=== PATIENT | male | born 1930 | race Caucasian/White ===

== ENCOUNTER 2018-01-26 14:21 | Emergency (ER) | payer MEDICARE, OTHER ==
[~2018-01-26] VITALS: Ht 182.9 cm; Wt 93.0 kg
[~2018-01-26 14:21] MED LIST: ACET325S8 PO; ASPI81 PO; CARB25TA PO; DONE5TAB14 PO; FOLI1 PO; HYDR-3533 PO; LEVO75TA3 PO; METH2.5 PO; PLAV75TA PO; PROS5TAB2 PO; TAB-TAB PO; VITA-13 PO; VITA10004 PO; ZOCO40TA PO
[2018-01-26 14:36] VITALS: BP 152/73; PULSE 97; RESP 16; TEMP 99.5; O2SAT 93
[2018-01-26 14:45] VITALS: O2SAT 93
[2018-01-26] MEDS ORDERED: SIMV20TA PO (14:45)
[2018-01-26] MEDS ORDERED: SODIUM CHLORIDE 0.9% FLUSH 10 ML FLUSH IVF PRN (14:45)
[2018-01-26] MEDS ORDERED: METH2.5T PO (14:45)
[2018-01-26] MEDS ORDERED: LEVO25TA4 PO (14:45)
[2018-01-26] MEDS ORDERED: FINA5TAB2 (14:45)
[2018-01-26] MEDS ORDERED: RESP: ALBUTEROL 2.5 MG/IPRATROPIUM 0.5 MG NEB (SCH) INH ONE (14:45)
[2018-01-26] MEDS ORDERED: FLUT1INH7 INH (14:45)
[2018-01-26] MEDS ORDERED: MONT10TA4 PO (14:45)
[2018-01-26] MEDS ORDERED: ALBUAER3 INH ×2 (14:45→16:41)
[2018-01-26] MEDS ORDERED: DONE10TA7 PO (14:45)
[2018-01-26] MEDS ORDERED: CARB10TA2 (14:45)
[2018-01-26 15:03] VITALS: BP 113/61; PULSE 73; RESP 20; O2SAT 93
--- NOTE | 2018-01-26 15:04 | PD ---
HPI Chief Complaint: Respiratory Symptoms Time Seen by Provider: 14:27 Travel History International Travel<30 days: No Contact w/Intl Traveler<30days: No Traveled to known affect area: No History of Present Illness HPI The patient is a 87-year-old male who presents to the emergency department for shortness of breath. The patient fell getting into the car on Monday afternoon. The patient fell backwards landing on his buttocks, but striking his mid thoracic back area on an edge. The patient has had some pain across the mid thoracic area that radiates to the shoulders bilaterally since Monday. The patient saw his primary physician, Dr. Larkin, on Monday who stated the patient did not need x-rays. However, the patient has had increasing shortness of breath, wheezing, and difficulty breathing since Monday. He also has pain when he goes from a lying to sitting position as well as certain types of movement, however, those improve at rest. He does note a bruise to the lower back pelvic region, but denies any pain there. He is able to ambulate and bear weight. He denied any head injury during the fall. He denies any headache or neck pain. He does take Plavix. He does note a cough without any fever. 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) Psychiatric: No Immunizations Current: Yes Past Surgical History Neurologic Surgery: Yes (PARKINSON) Other Surgery: Yes (PVD ANGIOPLASTY) Social History Alcohol Use: Yes (2 DLY) Tobacco Use: No (FORMER) Substance Use: No Allergies-Medications (Allergen,Severity, Reaction): Coded Allergies: No Known Allergies (Verified Adverse Reaction, Unknown, 01/26/18) Reported Meds & Prescriptions Reported Meds & Active Scripts Active Reported Proair Hfa 8.5 GM Inh (Albuterol Sulfate) 90 Mcg/Act Aer 2 Puff INH Q4-6H PRN 108 mcg/actuation Montelukast (Montelukast Sodium) 10 Mg Tab 10 Mg PO HS Simvastatin 20 Mg Tab 20 Mg PO DAILY Levothyroxine (Levothyroxine Sodium) 25 Mcg Tab 25 Mcg PO DAILY Breo Ellipta Inh (Fluticasone/Vilanterol) 200-25 Mcg/Act Inh 1 Puff INH DAILY Use daily at the same time. Methotrexate 2.5 Mg Tab 7.5 Mg PO Q7D Finasteride 5 Mg Tab 5 Mg DAILY Do not crush. Carbidopa-Levodopa 10-100 Mg Tab 1 Tab Q8HR Donepezil 10 Mg Tab 10 Mg PO HS Review of Systems Except as stated in HPI: all other systems reviewed are Neg General / Constitutional: No: Fever HENT: No: Lightheadedness Cardiovascular: No: Chest Pain or Discomfort Respiratory: Positive: Cough, Shortness of Breath Gastrointestinal: No: Nausea, Vomiting, Abdominal Pain Musculoskeletal: Positive: Pain Neurologic: No: Dizziness, Change in Mentation, Paresthesia, Sensory Disturbance Physical Exam Narrative GENERAL: Awake, alert, pleasant 87-year-old male who appears his stated age and is in no acute respiratory distress. SKIN: Focused skin assessment warm/dry. HEAD: Atraumatic. Normocephalic. EYES: Pupils equal and round. No scleral icterus. No injection or drainage. ENT: No nasal bleeding or discharge. Mucous membranes pink and moist. NECK: Trachea midline. No JVD. No tenderness of the cervical vertebrae. CARDIOVASCULAR: Regular rate and rhythm. No murmur appreciated. Heart rate in the 90s. RESPIRATORY: No accessory muscle use. Rhonchi and rales noted in the left base. GASTROINTESTINAL: Abdomen soft, non-tender, nondistended. No rebound tenderness. Back: No thoracic lumbar vertebral tenderness. Area of ecchymosis of the right sacroiliac but no tenderness. MUSCULOSKELETAL: No obvious deformities. No clubbing. No cyanosis. No edema. Full range of motion of the upper extremities and lower extremities bilaterally. NEUROLOGICAL: Awake and alert. No obvious cranial nerve deficits. Motor grossly within normal limits. Normal speech. Nonfocal. Oriented 3. Follows simple commands. PSYCHIATRIC: Appropriate mood and affect; insight and judgment normal. Data Data Last Documented VS Vital Signs Date Time Temp Pulse Resp B/P (MAP) Pulse Ox O2 Delivery O2 Flow Rate FiO2 01/26/18 15:03 73 20 113/61 (78) 93 Nasal Cannula 01/26/18 14:45 2.00 01/26/18 14:36 99.5 Orders Orders Complete Blood Count With Diff (01/26/18 14:43) Comprehensive Metabolic Panel (01/26/18 14:43) B-Type Natriuretic Peptide (01/26/18 14:43) Magnesium (Mg) (01/26/18 14:43) Ckmb (Isoenzyme) Profile (01/26/18 14:43) Troponin I (01/26/18 14:43) Iv Access Insert/Monitor (01/26/18 14:43) Electrocardiogram (01/26/18 14:43) Ecg Monitoring (01/26/18 14:43) Oximetry (01/26/18 14:43) Oxygen Administration (01/26/18 14:43) Chest, Single Ap (01/26/18 14:43) Sodium Chloride 0.9% Flush (Ns Flush) (01/26/18 14:45) Albuterol-Ipratropium Neb (Duoneb Neb) (01/26/18 14:45) Ct Thorax/ Chest W Iv Contrast (01/26/18 ) Iohexol 350 Inj (Omnipaque 350 Inj) (01/26/18 15:55) Ed Discharge Order (01/26/18 16:37) Labs Laboratory Tests Test 01/26/18 14:52 White Blood Count 10.1 TH/MM3 Red Blood Count 4.37 MIL/MM3 Hemoglobin 13.3 GM/DL Hematocrit 39.2 % Mean Corpuscular Volume 89.7 FL Mean Corpuscular Hemoglobin 30.3 PG Mean Corpuscular Hemoglobin Concent 33.8 % Red Cell Distribution Width 14.9 % Platelet Count 204 TH/MM3 Mean Platelet Volume 9.0 FL Neutrophils (%) (Auto) 85.1 % Lymphocytes (%) (Auto) 8.5 % Monocytes (%) (Auto) 4.6 % Eosinophils (%) (Auto) 1.4 % Basophils (%) (Auto) 0.4 % Neutrophils # (Auto) 8.6 TH/MM3 Lymphocytes # (Auto) 0.9 TH/MM3 Monocytes # (Auto) 0.5 TH/MM3 Eosinophils # (Auto) 0.1 TH/MM3 Basophils # (Auto) 0.0 TH/MM3 CBC Comment DIFF FINAL Differential Comment Blood Urea Nitrogen 18 MG/DL Creatinine 1.00 MG/DL Random Glucose 201 MG/DL Total Protein 7.3 GM/DL Albumin 3.2 GM/DL Calcium Level 8.0 MG/DL Magnesium Level 2.0 MG/DL Alkaline Phosphatase 80 U/L Aspartate Amino Transf (AST/SGOT) 13 U/L Alanine Aminotransferase (ALT/SGPT) 28 U/L Total Bilirubin 0.7 MG/DL Sodium Level 138 MEQ/L Potassium Level 3.9 MEQ/L Chloride Level 102 MEQ/L Carbon Dioxide Level 27.3 MEQ/L Anion Gap 9 MEQ/L Estimat Glomerular Filtration Rate 71 ML/MIN Total Creatine Kinase 68 U/L Troponin I LESS THAN 0.02 NG/ML B-Type Natriuretic Peptide 83 PG/ML MDM Medical Decision Making Medical Screen Exam Complete: Yes Emergency Medical Condition: Yes Medical Record Reviewed: Yes Interpretation(s) EKG reveals normal sinus rhythm with a rate of 92. Right bundle branch block. Laboratory Tests Test 01/26/18 14:52 White Blood Count 10.1 TH/MM3 Red Blood Count 4.37 MIL/MM3 Hemoglobin 13.3 GM/DL Hematocrit 39.2 % Mean Corpuscular Volume 89.7 FL Mean Corpuscular Hemoglobin 30.3 PG Mean Corpuscular Hemoglobin Concent 33.8 % Red Cell Distribution Width 14.9 % Platelet Count 204 TH/MM3 Mean Platelet Volume 9.0 FL Neutrophils (%) (Auto) 85.1 % Lymphocytes (%) (Auto) 8.5 % Monocytes (%) (Auto) 4.6 % Eosinophils (%) (Auto) 1.4 % Basophils (%) (Auto) 0.4 % Neutrophils # (Auto) 8.6 TH/MM3 Lymphocytes # (Auto) 0.9 TH/MM3 Monocytes # (Auto) 0.5 TH/MM3 Eosinophils # (Auto) 0.1 TH/MM3 Basophils # (Auto) 0.0 TH/MM3 CBC Comment DIFF FINAL Differential Comment Blood Urea Nitrogen 18 MG/DL Creatinine 1.00 MG/DL Random Glucose 201 MG/DL Total Protein 7.3 GM/DL Albumin 3.2 GM/DL Calcium Level 8.0 MG/DL Magnesium Level 2.0 MG/DL Alkaline Phosphatase 80 U/L Aspartate Amino Transf (AST/SGOT) 13 U/L Alanine Aminotransferase (ALT/SGPT) 28 U/L Total Bilirubin 0.7 MG/DL Sodium Level 138 MEQ/L Potassium Level 3.9 MEQ/L Chloride Level 102 MEQ/L Carbon Dioxide Level 27.3 MEQ/L Anion Gap 9 MEQ/L Estimat Glomerular Filtration Rate 71 ML/MIN Total Creatine Kinase 68 U/L Troponin I LESS THAN 0.02 NG/ML B-Type Natriuretic Peptide 83 PG/ML Last Impressions Chest X-Ray 01/26/18 1443 Signed Impressions: Service Date/Time: Friday, January 26, 2018 14:58 - CONCLUSION: No acute disease. Joshua Faust Jr., MD Chest CT 01/26/18 0000 Signed Impressions: Service Date/Time: Friday, January 26, 2018 15:44 - CONCLUSION: 1. 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 2. No evidence of pneumothorax. Joshua Sharma MD Differential Diagnosis Differential diagnosis includes mechanical fall, rib fracture, pneumothorax, hemothorax, pleural effusion, bronchitis, pneumonia, atelectasis, contusion, fracture. Narrative Course IV was established, labs are drawn and sent, and the patient was placed on cardiac telemetry monitoring and continuous pulse oximetry monitoring. EKG was ordered and interpreted. Chest x-ray was obtained. The patient was administered a DuoNeb. Chest x-ray reveals what appears to be left lower rib fractures but no evidence for pneumothorax. 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 Most likely the patient's effusion is a hemothorax note that the patient is 5 days out and has rib fractures over the affected area. The patient 's oxygen saturation was in the 93-96% range. He did not want pain medications in the emergency department. I had a discussion with the patient regarding admission to the trauma service versus outpatient follow-up. The patient would prefer outpatient follow-up. I had a discussion with the trauma surgeon, Dr. Sales, who agrees the patient can follow-up with the trauma clinic but recommends incentive spirometry and pain control. The states they have been spending incentive spirometry at home. I will write for albuterol inhaler , Zithromax, and [facility]. He is advised to return if symptoms worsen or progress. Diagnosis Primary Impression: Multiple rib fractures Qualified Codes: S22.42XA - Multiple fractures of ribs, left side, initial encounter for closed fracture Additional Impression: Hemothorax on left Referrals: [facility] as needed Patient Instructions: General Instructions Additional Instructions: Medications as directed. Follow-up with your primary physician. Follow-up with the trauma clinic. Incentive spirometry as directed. Albuterol inhaler every 4 hours while awake. Return if symptoms worsen or progress. Med/Other Pt SpecificInfo: Prescription(s) given Scripts Azithromycin (Zithromax Z-Angel) 250 Mg Dspk 250 MG PO DIRECTED for Infection, #1 DSPK 0 Refills 500 MG (2 tabs) day 1, then 1 tab days 2-5. Prov: Reza Zamorano MD 01/26/18 Hydrocodone-Acetaminophen ([facility]) 5 Mg-325 Mg Tab 1 TAB PO Q6H Y for PAIN, #15 TAB 0 Refills Prov: Reza Zamorano MD 01/26/18 Albuterol 8.5 GM Inh (Proair Hfa 8.5 GM Inh) 90 Mcg/Act Aer 2 PUFF INH Q4-6H Y for SHORTNESS OF BREATH, #1 INHALER 0 Refills 108 mcg/actuation Prov: Reza Zamorano MD 01/26/18 Disposition: 01 DISCHARGE HOME Condition: Stable Reza Zamorano MD Jan 26, 2018 15:04
[2018-01-26 15:17] LABS: AUTOMATED NEUTROPHIL # 8.6 TH/MM3 (1.8-7.7); BASOPHIL % 0.4 % (0.0-2.0); EOSINOPHIL # 0.1 TH/MM3 (0-0.4); EOSINOPHIL % 1.4 % (0.0-4.0); HEMATOCRIT 39.2 % (39.0-51.0); HEMOGLOBIN 13.3 GM/DL (13.0-17.0); LYMPH % 8.5 % (9.0-44.0); LYMPHOCYTE # 0.9 TH/MM3 (1.0-4.8); MEAN CELL VOLUME 89.7 FL (80.0-100.0); MEAN CORPUSCULAR HEMOGLOBIN 30.3 PG (27.0-34.0); MEAN CORPUSCULAR HGB CONC 33.8 % (32.0-36.0); MONO % 4.6 % (0.0-8.0); MONOCYTE # 0.5 TH/MM3 (0-0.9); NEUT % 85.1 % (16.0-70.0); PLATELET COUNT 204 TH/MM3 (150-450); RED BLOOD COUNT 4.37 MIL/MM3 (4.50-5.90); RED CELL DISTRIBUTION WIDTH 14.9 % (11.6-17.2); WHITE BLOOD COUNT 10.1 TH/MM3 (4.0-11.0)
--- NOTE | 2018-01-26 15:19 | RADRPT ---
EXAM DATE/TIME: 01/26/2018 14:58 [facility] COMPARISON: CHEST SINGLE AP, September 11, 2015, 11:35. INDICATIONS : Short of breath after fall 6 days ago. MEDICAL HISTORY : Hypercholesterolemia. Dementia. Parkinson's diabetic. former smoker. SURGICAL HISTORY : Total knee replacement, right. Total knee replacement, left. PVD angioplasty. ENCOUNTER: Initial ACUITY: 4 - 6 days PAIN SCORE: 6/10 LOCATION: chest FINDINGS: A single view of the chest demonstrates the lungs to be symmetrically aerated without evidence of mas s, infiltrate or effusion. No pneumothorax. The cardiomediastinal contours are unremarkable. Osseou s structures are intact. CONCLUSION: No acute disease. Joshua Faust Jr., MD on January 26, 2018 at 15:16 Board Certified Radiologist. This report was verified electronically.
[2018-01-26 15:29] LABS: CHLORIDE 102 MEQ/L (98-107); SODIUM (NA) 138 MEQ/L (136-145)
[2018-01-26 15:32] LABS: ALBUMIN 3.2 GM/DL (3.4-5.0); BICARBONATE 27.3 MEQ/L (21.0-32.0); GLUCOSE,RANDOM 201 MG/DL (74-106)
[2018-01-26 15:33] LABS: BLOOD UREA NITROGEN 18 MG/DL (7-18)
[2018-01-26 15:36] LABS: ALT (GPT) 28 U/L (12-78); AST (GOT) 13 U/L (15-37); GLOMERULAR FILTRATION RATE 71 ML/MIN (>89)
[2018-01-26 15:37] LABS: TOTAL BILIRUBIN ADULT 0.7 MG/DL (0.2-1.0); TOTAL PROTEIN 7.3 GM/DL (6.4-8.2)
[2018-01-26 15:38] LABS: ALKALINE PHOSPHATASE 80 U/L (45-117)
[2018-01-26 15:41] LABS: TROPONIN I LESS THAN 0.02 NG/ML (0.02-0.05)
[2018-01-26] MEDS ORDERED: IOHEXOL 350 MG/ML 10 ML VIAL (for RAD DIAG) IVCONTRAST ONE (15:55)
--- NOTE | 2018-01-26 16:26 | RADRPT ---
EXAM DATE/TIME: 01/26/2018 15:44 [facility] COMPARISON: CHEST SINGLE AP, January 26, 2018, 14:58. INDICATIONS : Trauma. Fall. Short of breath. Left chest and shoulder pain. IV CONTRAST: 65 cc Omnipaque 350 (iohexol) IV RADIATION DOSE: 17.59 CTDIvol (mGy) MEDICAL HISTORY : Parkinson's. Diabetes mellitus type 2. Cardiovascular diseaseDementia. SURGICAL HISTORY : None. ENCOUNTER: Initial ACUITY: 4 - 6 days PAIN SCALE: 7/10 LOCATION: Left chest TECHNIQUE: Volumetric scanning of the chest was performed. Using automated exposure control and adjustment of t he mA and/or kV according to patient size, radiation dose was kept as low as reasonably achievable to obtain optimal diagnostic quality images. DICOM format image data is available electronically for review and comparison. Follow-up recommendations for detected pulmonary nodules are based at a minimum on nodule size and pa tient risk factors according to Fleischner Society Guidelines. FINDINGS: LUNGS: There is focal subsegmental consolidation adjacent to the large left pleural effusion. The right maria luisa g is clear. No evidence of pneumothorax. PLEURA: Large left pleural fluid or blood collection measuring 3.[address] density of -10 Houns[place] uni ts suggesting the possibility of chylous effusion. MEDIASTINUM: The heart and great vessels demonstrate no acute abnormality. There is no mediastinal or hilar lymph adenopathy. AXILLAE: Within normal limits. No lymphadenopathy. SKELETAL: There are minimally displaced fractures of the posterior-lateral left 7th, 8th, and 9th ribs the. Th e scapula appears intact.. MISCELLANEOUS: The visualized upper abdominal organs demonstrate no acute abnormality. CONCLUSION: 1. 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 2. No evidence of pneumothorax. Joshua Sharma MD on January 26, 2018 at 16:02 Board Certified Radiologist. This report was verified electronically.
[2018-01-26] MEDS ORDERED: ZITHTAB PO (16:41)
[2018-01-26] MEDS ORDERED: NORC5TAB PO (16:41)
[2018-01-26 17:32] VITALS: BP 115/58
--- NOTE | 2018-01-27 16:58 | EKG ---
Date Performed: 01/26/2018 Time Performed: 14:44:40 PTAGE: 87 years EKG: Sinus rhythm MARKED RIGHT AXIS DEVIATION RIGHT BUNDLE BRANCH BLOCK Since the previous tracing, no significant sachi nge noted ABNORMAL ECG PREVIOUS TRACING : 10/20/2013 01.12 DOCTOR: Carlos Gonzalez Interpretating Date/Time 01/27/2018 16:57:54
== END 2018-01-26 17:33 | disposition home or self-care (01) ==
LOC: PHED 14:21
DX: S22.42XA Multiple fractures of ribs, left side, initial encounter for closed fracture (principal); S27.1XXA Traumatic hemothorax, initial encounter; I45.10 Unspecified right bundle-branch block; R94.31 Abnormal electrocardiogram [ECG] [EKG]; W18.39XA Other fall on same level, initial encounter
CPT/HCPCS: 71045; 71260; 80053; 82550; 83735; 83880; 84484; 85025; 93005; 99285; Q9967

== ENCOUNTER 2018-09-01 13:41 | Observation (INO) ==
[2018-09-01] MEDS ORDERED: Acetaminophen 325 MG Tablet PO ONE (14:01)
--- NOTE | 2018-09-01 14:32 | XR ---
EXAM DATE: 09/01/2018 2:28 PM EST AGE/SEX: 88 years / Male INDICATIONS: Fever, cough CLINICAL DATA: This is the patient's initial encounter. Patient reports that signs and symptoms have been present for 1 day and indicates a pain score of 0/10. MEDICAL/SURGICAL HISTORY: . Hypercholesterolemia. Dementia. Parkinson's diabetic. former smoker . . Total knee replacement, right. Total knee replacement, left. PVD angioplasty COMPARISON: [facility], CHEST SINGLE AP, 01/26/2018. . FINDINGS: No infiltrate, effusion or pneumothorax demonstrated. Very mild, chronic diffuse interstitial opaciti es of both lungs without significant change. Normal, stable heart size. Tortuous and atherosclerotic aorta again seen. CONCLUSION: 1. No evidence of acute cardiopulmonary disease. 2. Very mild chronic interstitial changes similar to before. 3. Tortuous and atherosclerotic aorta. Electronically signed by: Michael Bowser MD 09/01/2018 2:31 PM EST
[2018-09-01 14:35] LABS: Baso % (Auto) 0.3 % (0.0-2.0); Eos # (Auto) 0.1 th/mm3 (0.0-0.4); Eos % (Auto) 1.2 % (0.0-4.0); Hematocrit 38.8 % (39.0-51.0); Lymph # (Auto) 0.4 th/mm3 (1.0-4.8); Lymph % (Auto) 5.4 % (9.0-44.0); Mean Corpuscular HGB Conc 33.5 % (32.0-36.0); Mean Corpuscular Hemoglobin 30.8 pg (27.0-34.0); Mean Corpuscular Volume 91.8 fL (80.0-100.0); Mono # (Auto) 0.8 th/mm3 (0.0-0.9); Mono % (Auto) 10.5 % (0.0-8.0); Neut # (Auto) 6.5 th/mm3 (1.8-7.7); Neut % (Auto) 82.6 % (16.0-70.0); Platelet Count 163 th/mm3 (150-450); Red Blood Count 4.23 mil/mm3 (4.50-5.90); Red Cell Distribution Width 15.2 % (11.6-17.2); White Blood Count 7.8 th/mm3 (4.0-11.0)
[2018-09-01] MEDS: Sod Chloride 0.9% Inj 1,000 ML IV.SIG SCH ×2 (14:46→15:49)
[2018-09-01 14:50] LABS: Chloride 101 meq/L (98-107); Sodium 136 meq/L (136-145)
[2018-09-01 14:53] LABS: Calcium 8.5 mg/dL (8.5-10.1)
[2018-09-01 14:54] LABS: Albumin 3.2 g/dL (3.4-5.0); Anion Gap 6 meq/L (5-15); Blood Urea Nitrogen 14 mg/dL (7-18); Carbon Dioxide 28.8 meq/L (21.0-32.0); Glucose,Random 181 mg/dL (74-106); Magnesium 1.9 mg/dL (1.5-2.5)
[2018-09-01 14:57] LABS: Alanine Aminotransferase 16 U/L (12-78); Aspartate Aminotransferase 15 U/L (15-37); Glomerular Filtration Rate 72 mL/min (>89)
[2018-09-01 14:59] LABS: Total Protein 7.5 g/dL (6.4-8.2)
[2018-09-01 15:00] LABS: Alkaline Phosphatase 83 U/L (45-117)
[2018-09-01] MEDS ORDERED: Azithromycin Inj 500 MG in Sodium Chlor 0.9% Inj 250 ML IV.SIG ONE (15:01)
--- NOTE | 2018-09-01 15:12 | ED ---
HPI General Chief Complaint: Respiratory Symptoms Stated Complaint: congestion/sob/fever/cough Time Seen by Provider: 09/01/18 14:00 Source: patient and family Mode of arrival: ambulatory Limitations: no limitations History of Present Illness MD complaint: Reports fever Onset (ago): day(s) (3) Associated symptoms: Reports cough Relieving factors: nothing Exacerbating factors: nothing Treatments prior to arrival fever: Reports none Related Data Home Medications Medication Instructions Recorded Confirmed aspirin [Aspir-81] 81 mg PO DAILY 09/01/18 09/01/18 carbidopa-levodopa 1 tab PO TID 09/01/18 09/01/18 cholecalciferol (vitamin D3) 1,000 unit PO DAILY 09/01/18 09/01/18 [Vitamin D3] clopidogrel 75 mg PO DAILY 09/01/18 09/01/18 cyanocobalamin (vitamin B-12) 1 tab PO DAILY 09/01/18 09/01/18 [Vitamin B-12] donepezil 10 mg PO DAILY 09/01/18 09/01/18 finasteride 5 mg PO DAILY 09/01/18 09/01/18 fluticasone-vilanterol [Breo 1 inh INHALATION DAILY 09/01/18 09/01/18 Ellipta] folic acid 1 mg PO DAILY 09/01/18 09/01/18 levothyroxine 75 mcg PO DAILY 09/01/18 09/01/18 memantine 5 mg PO BID 09/01/18 09/01/18 methotrexate sodium 10 mg PO QWEEK 09/01/18 09/01/18 montelukast 10 mg PO QPM 09/01/18 09/01/18 ynfznjix-nol-RD-lycopen-lutein 1 tab PO DAILY 09/01/18 09/01/18 [Centrum Silver] simvastatin 20 mg PO QPM 09/01/18 09/01/18 Allergies Allergy/AdvReac Type Severity Reaction Status Date / Time No Known Allergies Allergy Verified 09/01/18 13:52 Review of Systems ROS: all other systems reviewed are negative PMFSH History History Provided By: Family Member Medical History Medical History Dementia (Chronic) Parkinson disease (Chronic) Social History Social History Substance History: No History of Abuse Second Hand Smoke Exposure: No Smoking Status: Former smoker How Often Do You Have a Drink Containing Alcohol: 4 or more times a week Exam Const General: cooperative, healthy appearing, comfortable, no acute distress and well developed Orientation: alert, awake and oriented x3 HENME Head: normal to inspection, normocephalic and atraumatic Eyes Alignment and Position: alignment normal and position abnormal Conjunctivae: conjunctivae normal Sclera: sclerae normal EOM: EOM intact bilaterally Neck Neck: normal visual inspection and full ROM Chest Chest: normal inspection of the chest Resp Effort & Inspection: normal respiratory effort and able to speak in complete sentences Auscultation: rhonchi left lower Cardio Rate: regular rate Rhythm: regular rhythm GI Inspection: normal to inspection Palpation: soft Back/Spine/Pelvis Cervical Spine: cervical ROM normal Thoracic/Lumbar Spine: thoraco-lumbar ROM normal Skin General: no rashes or lesions noted, turgor normal and dry skin Neuro General: alert, awake, oriented x3, moves all extremities and CN's II-XI intact bilaterally Extrem General: normal to inspection and full ROM Psych Appearance: grossly normal Mental Status: mental status grossly normal Speech and Movement: speech and movement normal Mood: congruent mood Affect: normal affect Attitude: cooperative Thought Process: normal Thought Content: normal Judgment: judgment good Course Consultations Consultation #1: Dr. Lundberg will place in OBS. He asked for a flu test which has been ordered. Time: 15:22 Initial Documented Vital Signs Temperature 101.4 F H 09/01/18 13:49 Pulse Rate 124 H 09/01/18 13:49 Respiratory Rate 16 09/01/18 13:49 Blood Pressure 122/64 09/01/18 13:49 Pulse Oximetry 93 L 09/01/18 13:49 Last Documented Vital Signs Temperature 101.4 F H 09/01/18 13:49 Pulse Rate 116 H 09/01/18 14:01 Respiratory Rate 16 09/01/18 13:49 Blood Pressure 122/64 09/01/18 13:49 Pulse Oximetry 92 L 09/01/18 14:01 Medical Decision Making [facility] Narrative Medical decision making narrative: This is a patient with a history of Parkinson 's disease as well as a reported history of dementia although he is able to give his own history. He comes in with a complaint of fever and productive cough for the last 3-4 days. He meets Sirs and sepsis criteria in that he is tachycardic and febrile and has a source for infection. His physical exam is compatible with a left lower lobe pneumonia. An IV has been started. 2 L of IV fluid have been ordered. Septic workup is in process. He is being empirically treated with IV Rocephin and IV Zithromax. I anticipate admission to the hospital for at least observation and IV antibiotics. Medical Screen Exam Complete: Yes Emergency Medical Condition: Yes Differential Diagnosis Differential Diagnosis: Differential diagnosis of fever includes but is not limited to viral illness, strep throat, otitis media, pneumonia, sepsis, UTI Lab Data Lab results reviewed: Yes I reviewed the patient's lab results. Result diagrams: 09/01/18 14:22 09/01/18 14:22 Lab Results 09/01/18 09/01/18 09/01/18 Range/Units 14:15 14:22 14:22 CBC w Diff Auto diff final WBC 7.8 (4.0-11.0) th/mm3 RBC 4.23 L (4.50-5.90) mil/mm3 Hgb 13.0 (13.0-17.0) gm/dL Hct 38.8 L (39.0-51.0) % MCV 91.8 (80.0-100.0) fL MCH 30.8 (27.0-34.0) pg MCHC 33.5 (32.0-36.0) % RDW 15.2 (11.6-17.2) % Plt Count 163 (150-450) th/mm3 MPV 9.0 (7.0-11.0) fL Neut % (Auto) 82.6 H (16.0-70.0) % Lymph % (Auto) 5.4 L (9.0-44.0) % Walker % (Auto) 10.5 H (0.0-8.0) % Eos % (Auto) 1.2 (0.0-4.0) % Baso % (Auto) 0.3 (0.0-2.0) % Neut # (Auto) 6.5 (1.8-7.7) th/mm3 Lymph # (Auto) 0.4 L (1.0-4.8) th/mm3 Walker # (Auto) 0.8 (0.0-0.9) th/mm3 Eos # (Auto) 0.1 (0.0-0.4) th/mm3 Baso # (Auto) 0.0 (0.0-0.2) th/mm3 WBC Differential . Differential Comment . Sodium 136 (136-145) meq/L Potassium 4.0 (3.5-5.1) meq/L Chloride 101 (98-107) meq/L Carbon Dioxide 28.8 (21.0-32.0) meq/L Anion Gap 6 (5-15) meq/L BUN 14 (7-18) mg/dL Creatinine 0.98 (0.60-1.30) mg/dL Estimated GFR 72 L (>89) mL/min Random Glucose 181 H (74-106) mg/dL Lactic Acid 1.3 (0.4-2.0) mmol/L Calcium 8.5 (8.5-10.1) mg/dL Magnesium 1.9 (1.5-2.5) mg/dL Total Bilirubin 0.9 (0.2-1.0) mg/dL AST 15 (15-37) U/L ALT 16 (12-78) U/L Alkaline Phosphatase 83 (45-117) U/L Total Protein 7.5 (6.4-8.2) g/dL Albumin 3.2 L (3.4-5.0) g/dL Imaging Data Attestation: I personally reviewed and interpreted this imaging study as follows : My impression: No radiographic evidence of pneumonia. However, he has physical exam evidence of pneumonia in the left lower lobe. Radiologist's impression: Chest X-Ray 09/01/18 14:01 CONCLUSION: 1. No evidence of acute cardiopulmonary disease. 2. Very mild chronic interstitial changes similar to before. 3. Tortuous and atherosclerotic aorta. ECG Data EKG Prior to Arrival: No Attestation: I personally reviewed and interpreted this ECG as follows: (EKG shows atrial flutter with a ventricular rate of 115. He also has right axis deviation.) Prior ECG tracings: available for review (And there are no acute changes.) Discharge Plan Discharge Disposition Patient Disposition: 30 Still Patient Discharge Details Diagnosis: Sepsis, Pneumonia Physicians Team ED Provider: Faith Lazaro Primary Care Provider: Elder Larkin I Rxs /Orders / Referrals /Forms Prescriptions: No Action methotrexate sodium 10 mg Tablet 10 mg PO QWEEK RF: 0 donepezil 10 mg Tablet 10 mg PO DAILY RF: 0 cyanocobalamin (vitamin B-12) [Vitamin B-12] 1,000 mcg Tablet 1 tab PO DAILY RF: 0 clopidogrel 75 mg Tablet 75 mg PO DAILY RF: 0 aspirin [Aspir-81] 81 mg Tablet,Delayed Release (Dr/Ec) 81 mg PO DAILY RF: 0 levothyroxine 75 mcg Tablet 75 mcg PO DAILY RF: 0 simvastatin 20 mg Tablet 20 mg PO QPM RF: 0 folic acid 1 mg Tablet 1 mg PO DAILY RF: 0 montelukast 10 mg Tablet 10 mg PO QPM RF: 0 carbidopa-levodopa 25-100 mg Tablet 1 tab PO TID RF: 0 finasteride 5 mg Tablet 5 mg PO DAILY RF: 0 memantine 5 mg Tablet 5 mg PO BID RF: 0 qiolwpyl-bxb-YT-lycopen-lutein [Centrum Silver] 0.4-300-250 mg-mcg-mcg Tablet 1 tab PO DAILY RF: 0 cholecalciferol (vitamin D3) [Vitamin D3] 1,000 unit Tablet 1,000 unit PO DAILY RF: 0 fluticasone-vilanterol [Breo Ellipta] 200-25 mcg/dose Blister With Device 1 inh INHALATION DAILY RF: 0 Status ED Status: Pending Admission
[2018-09-01] MEDS ORDERED: Bisacodyl 10 MG Supp RECTAL PRN (15:25)
[2018-09-01] MEDS ORDERED: Acetaminophen 325 MG Tablet PO PRN (15:25)
--- NOTE | 2018-09-01 15:28 | P.HP ---
History of Present Illness Service: Hospitalist Primary Care Physician: Elder Larkin MD Chief Complaint: Cough, shortness of breath History of Present Illness: Mr. Bland is a pleasant 88-year-old male with a history of dementia , Parkinson's disease, PVD who presents to the emergency department due to cough , nasal drip and slight fever that started 3-4 days prior to this admission. Patient's cough was productive and was brown in color which became green in the last 24 hours or so. Patient does not usually complain of anything. However caregiver and patient's noted that patient was somewhat short of breath. He did not have any chest pain, abdominal pain. No changes in bowel or bladder habits. ED workup indicated unremarkable CBC and BMP. Chest x-ray shows no evidence of pneumonia. Past medical history: Parkinson's disease, dementia, aspiration pneumonia 5 years ago, peripheral vascular disease Past surgical history: PVD related to stent placement, knee surgery Social history: Patient does not smoke, occasionally drinks wine. Family history: Father had black lung. No family history of Alzheimer's or Parkinson's. Review of Systems All other systems reviewed negative except as stated in HPI PMFSH - History History Provided By: Family Member - Medical History Medical History: Medical History (Last Reviewed 09/01/18 @ 16:26 by Jessica Lundberg DO) Dementia Parkinson disease Medications and Allergies Active Medications: Active Medications Acetaminophen (Tylenol) 650 mg PO Q4H PRN PRN Reason: Headache, fever, pain 1-4 Al Hydroxide/Mg Hydroxide (Milk Of Magnesia Liq) 30 ml PO Q12H PRN PRN Reason: Mild Constipation Albuterol (Duoneb Neb (Prn)) 1 ampul NEB Q4HR NEB PRN PRN Reason: DYSPNEA Bisacodyl (Dulcolax Supp) 10 mg RECTAL DAILY PRN PRN Reason: SEVERE CONSITIPATION Ceftriaxone Sodium 2,000 mg/ (Sodium Chloride) 100 mls @ 200 mls/hr IV.SIG ONCE ONE Stop: 09/01/18 15:30 Azithromycin 500 mg/ Sodium (Chloride) 250 mls @ 500 mls/hr IV.SIG ONCE ONE Stop: 09/01/18 15:30 Lactulose (Lactulose Liq) 30 ml PO DAILY PRN PRN Reason: SEVERE CONSITIPATION Ondansetron HCl (Zofran Inj) 4 mg IV.PUSH Q6H PRN PRN Reason: NAUSEA OR VOMITING Sennosides (Senokot) 17.2 mg PO Q12H PRN PRN Reason: Moderate Constipation Allergies Allergy/AdvReac Type Severity Reaction Status Date / Time No Known Allergies Allergy Verified 09/01/18 13:52 Home Medications Medication Instructions Recorded Confirmed Type aspirin [Aspir-81] 81 mg PO DAILY 09/01/18 09/01/18 History carbidopa-levodopa 1 tab PO TID 09/01/18 09/01/18 History cholecalciferol (vitamin D3) 1,000 unit PO DAILY 09/01/18 09/01/18 History [Vitamin D3] clopidogrel 75 mg PO DAILY 09/01/18 09/01/18 History cyanocobalamin (vitamin B-12) 1 tab PO DAILY 09/01/18 09/01/18 History [Vitamin B-12] donepezil 10 mg PO DAILY 09/01/18 09/01/18 History finasteride 5 mg PO DAILY 09/01/18 09/01/18 History fluticasone-vilanterol [Breo 1 inh INHALATION DAILY 09/01/18 09/01/18 History Ellipta] folic acid 1 mg PO DAILY 09/01/18 09/01/18 History levothyroxine 75 mcg PO DAILY 09/01/18 09/01/18 History memantine 5 mg PO BID 09/01/18 09/01/18 History methotrexate sodium 10 mg PO QWEEK 09/01/18 09/01/18 History montelukast 10 mg PO QPM 09/01/18 09/01/18 History vzvcfroc-bbv-EZ-lycopen-lutein 1 tab PO DAILY 09/01/18 09/01/18 History [Centrum Silver] simvastatin 20 mg PO QPM 09/01/18 09/01/18 History Exam Vital signs: Vital Signs 09/01/18 13:49 Temperature 101.4 F H Pulse Rate 124 H Respiratory Rate 16 Blood Pressure 122/64 Pulse Oximetry 93 L Intake & Output 08/31/18 09/01/18 09/01/18 18:59 06:59 18:59 Weight 99 kg Narrative: GENERAL: This is a well-nourished, well-developed patient, in no apparent distress. Does not talk much. SKIN: No rashes, ecchymoses or lesions. Warm and dry. HEAD: Atraumatic. Normocephalic. No temporal or scalp tenderness. EYES: Pupils equal round and reactive. No injection or drainage. ENT: Nose without bleeding, purulent drainage or septal hematoma. Airway patent. NECK: Trachea midline. No lymphadenopathy. Supple, nontender, no meningeal signs. CARDIOVASCULAR: Regular rate and rhythm without murmurs, gallops, or rubs. No JVD. RESPIRATORY: Moderate air entry. Diffuse rales appreciated. GASTROINTESTINAL: Abdomen soft, non-tender, nondistended. No guarding. MUSCULOSKELETAL: Extremities without clubbing, cyanosis, or edema. NEUROLOGICAL: Awake and alert. Cranial nerves II through XII intact. No focal neurological deficits. Normal speech. Results - Labs CBC & Chem 7: 09/01/18 14:22 09/01/18 14:22 Labs: Laboratory Results - last 24 hr 09/01/18 09/01/18 09/01/18 14:15 14:22 14:22 CBC w Diff Auto diff final WBC 7.8 RBC 4.23 L Hgb 13.0 Hct 38.8 L MCV 91.8 MCH 30.8 MCHC 33.5 RDW 15.2 Plt Count 163 MPV 9.0 Neut % (Auto) 82.6 H Lymph % (Auto) 5.4 L [place] % (Auto) 10.5 H Eos % (Auto) 1.2 Baso % (Auto) 0.3 Neut # (Auto) 6.5 Lymph # (Auto) 0.4 L [place] # (Auto) 0.8 Eos # (Auto) 0.1 Baso # (Auto) 0.0 WBC Differential . Differential Comment . Sodium 136 Potassium 4.0 Chloride 101 Carbon Dioxide 28.8 Anion Gap 6 BUN 14 Creatinine 0.98 Estimated GFR 72 L Random Glucose 181 H Lactic Acid 1.3 Calcium 8.5 Magnesium 1.9 Total Bilirubin 0.9 AST 15 ALT 16 Alkaline Phosphatase 83 Total Protein 7.5 Albumin 3.2 L - Imaging Impressions Chest X-Ray 09/01/18 14:01 CONCLUSION: 1. No evidence of acute cardiopulmonary disease. 2. Very mild chronic interstitial changes similar to before. 3. Tortuous and atherosclerotic aorta. Caprini VTE Risk Assessment Caprini VTE Risk Assessment: No/Low Risk (score <= 1) Caprini Risk Assessment Model: Point Value = 1 Point Value = 2 Point Value = 3 Point Value = 5 Age 41-60 Minor surgery BMI > 25 kg/m2 Swollen legs Varicose veins or History of unexplained or recurrent spontaneous Oral contraceptives or hormone replacement Sepsis (< 1 month) Serious lung disease, including pneumonia (< 1 month) Abnormal pulmonary function Acute myocardial infarction Congestive heart failure (< 1 month) History of inflammatory bowel disease Medical patient at bed rest Age 61-74 Arthroscopic surgery Major open surgery (> 45 min) Laparoscopic surgery (> 45 min) Malignancy Confined to bed (> 72 hours) Immobilizing plaster cast Central venous access Age >= 75 History of VTE Family history of VTE Factor V Leiden Prothrombin [id number] Lupus anticoagulant Anticardiolipin antibodies Elevated serum homocysteine Heparin-induced thrombocytopenia Other congenital or acquired thrombophilia Stroke (< 1 month) Elective arthroplasty Hip, pelvis, or leg fracture Acute spinal cord injury (< 1 month) Prophylaxis Regimen: Total Risk Factor Score Risk Level Prophylaxis Regimen 0-1 Low Early ambulation 2 Moderate Order ONE of the following: *Sequential Compression Device (SCD) *Heparin 5000 units SQ BID 3-4 Higher Order ONE of the following medications: *Heparin 5000 units SQ TID *Enoxaparin/Lovenox 40 mg SQ daily (WT < 150 kg, CrCl > 30 mL/min) *Enoxaparin/Lovenox 30 mg SQ daily (WT < 150 kg, CrCl > 10-29 mL/min) *Enoxaparin/Lovenox 30 mg SQ BID (WT < 150 kg, CrCl > 30 mL/min) AND/OR *Sequential Compression Device (SCD) 5 or more Highest Order ONE of the following medications: *Heparin 5000 units SQ TID (Preferred with Epidurals) *Enoxaparin/Lovenox 40 mg SQ daily (WT < 150 kg, CrCl > 30 mL/min) *Enoxaparin/Lovenox 30 mg SQ daily (WT < 150 kg, CrCl > 10-29 mL/min) *Enoxaparin/Lovenox 30 mg SQ BID (WT < 150 kg, CrCl > 30 mL/min) AND *Sequential Compression Device (SCD) Assessment and Plan - Plan Mr. Bland is a pleasant 88-year-old male with a history of PVD, Parkinson's disease, dementia who was brought to the hospital by patient and also his caregiver with shortness of breath, cough and fever for the last 3- 4 days. ED workup indicated unremarkable CBC, BMP as well as chest x-ray. Probable acute bronchitis Patient received ceftriaxone and azithromycin in the ED. Will continue azithromycin 500 mg p.o. daily Continue DuoNeb scheduled and as needed Prednisone 20 mg now and then continue prednisone 20 mg twice daily Supplemental oxygen to keep O2 saturation above 88% Continue home medication Breo. History of Parkinson's disease History of dementia Continue donepezil, memantine, carbidopa levodopa History of peripheral vascular disease Continue aspirin, Plavix. Full code. SCDs.
[2018-09-01] MEDS ORDERED: predniSONE 20 MG Tablet PO ONE (17:00)
[2018-09-01] MEDS ORDERED: Montelukast 10 MG Tablet PO SCH (18:00)
[2018-09-01 18:26] LABS: Bilirubin,Urine Negative (Negative); Clarity,Urine Clear (Clear); Color,Urine Yellow (Yellw/Straw); Glucose,Urine (UA) Negative (Negative); Leukocyte Esterase,Urine Negative (Negative); Nitrite,Urine Negative (Negative); Specific Gravity,Urine Less/Equal 1.005 (1.002-1.035); Urobilinogen,Urine 0.2 mg/dL (Less than 2)
[2018-09-01 18:32] LABS: RBC,Urine 0-3 /hpf (0-3); Squamous Epithelial Cell,Urine 0-5 /hpf (0-5); WBC,Urine 0-5 /hpf (0-5)
--- NOTE | 2018-09-01 21:15 | ECG ---
Date Performed: 09/01/2018 Time Performed: 15:03:34 PTAGE: 88 years EKG: Unclear underlying rhythm, probably sinus tachycardia. MARKED RIGHT AXIS DEVIATION RIGHT BU NDLE BRANCH BLOCK ABNORMAL ECG Compared to prior electrocardiogram, rate has increased . PREVIOUS TRACING : 01/26/2018 14.44 DOCTOR: Raymundo Anthony Interpretating Date/Time 09/01/2018 21:14:29
[2018-09-01] MEDS: predniSONE 20 MG Tablet PO SCH (22:10)
[2018-09-02] MEDS ORDERED: Levothyroxine 75 MCG Tablet PO SCH (06:00)
[2018-09-02 07:38] VITALS: RESP 20
[2018-09-02] MEDS ORDERED: Folic Acid 1 MG Tablet PO SCH (09:00)
[2018-09-02] MEDS ORDERED: Azithromycin 250 MG Tablet PO SCH (09:00)
[2018-09-02] MEDS ORDERED: Vitamins A,C,E/Lutein/Minerals Tablet PO SCH (09:00)
[2018-09-02] MEDS ORDERED: Finasteride 5 MG Tablet PO SCH (09:00)
[2018-09-02 09:56] VITALS: BP 144/71; PULSE 118; TEMP 96.1; O2SAT 91
[2018-09-02] MEDS: predniSONE 20 MG Tablet PO SCH (10:07)
--- NOTE | 2018-09-02 10:16 | P.DS ---
Date of admission: 09/01/18 15:53 Primary care physician: Elder Larkin MD Attending physician on discharge: Jessica Lundberg Anticipated date of discharge: 09/02/18 Brief History from admission: Mr. Bland is a pleasant 88-year-old male with a history of dementia , Parkinson's disease, PVD who presents to the emergency department due to cough , nasal drip and slight fever that started 3-4 days prior to this admission. Patient's cough was productive and was brown in color which became green in the last 24 hours or so. Patient does not usually complain of anything. However caregiver and patient's noted that patient was somewhat short of breath. He did not have any chest pain, abdominal pain. No changes in bowel or bladder habits. ED workup indicated unremarkable CBC and BMP. Chest x-ray shows no evidence of pneumonia. Past medical history: Parkinson's disease, dementia, aspiration pneumonia 5 years ago, peripheral vascular disease Past surgical history: PVD related to stent placement, knee surgery Social history: Patient does not smoke, occasionally drinks wine. Family history: Father had black lung. No family history of Alzheimer's or Parkinson's. Patient update on day of discharge: Patient is doing well. No acute concerns. Sitting in his chair, on room air. Good appetite. Wants to go home. DS: Medications - Discharge Medications Prescriptions: azithromycin 500 mg PO DAILY 5 Days #10 tab prednisone 10 mg PO BID #35 tab DS: Summary Hospital Course: Mr. Bland is a pleasant 88-year-old male with a history of PVD, Parkinson's disease, dementia who was brought to the hospital by patient and also his caregiver with shortness of breath, cough and fever for the last 3- 4 days. ED workup indicated unremarkable CBC, BMP as well as chest x-ray. Probable acute bronchitis Patient received ceftriaxone and azithromycin in the ED. Will continue azithromycin 500 mg p.o. daily Continue DuoNeb scheduled and as needed Prednisone 20 mg now and then continue prednisone 20 mg twice daily Supplemental oxygen to keep O2 saturation above 88% Continue home medication Breo. History of Parkinson's disease History of dementia Continue donepezil, memantine, carbidopa levodopa History of peripheral vascular disease Continue aspirin, Plavix. Overall, patient is on room air. Doing well. Will continue Azithromycin and Prednisone. - Time Spent with Patient Total time spent providing and/or coordinating discharge services: Less than 30 minutes - Quality: VTE Deep Vein Thrombosis/Pulmonary Embolism Present on Admission: No Exam Vital signs: Vital Signs 09/01/18 13:49 09/01/18 14:01 09/01/18 14:05 Temperature 101.4 F H Pulse Rate 124 H 116 H 116 H Respiratory Rate 16 20 Blood Pressure 122/64 111/69 Pulse Oximetry 93 L 92 L 92 L 09/01/18 15:35 09/01/18 16:50 09/01/18 20:00 Temperature 99.3 F 97.6 F Pulse Rate 116 H 90 86 Respiratory Rate 18 18 18 Blood Pressure 133/70 127/57 L 138/65 Pulse Oximetry 95 96 09/01/18 20:50 09/02/18 00:00 09/02/18 05:50 Temperature 98.4 F Pulse Rate 95 H 100 H Respiratory Rate 18 18 Blood Pressure 132/72 Pulse Oximetry 95 94 L 95 09/02/18 07:36 09/02/18 08:00 Temperature 96.1 F L Pulse Rate 90 118 H Respiratory Rate 20 20 Blood Pressure 144/71 H Pulse Oximetry 95 91 L Intake & Output 09/01/18 09/02/18 09/02/18 18:59 06:59 18:59 Intake Total 2350 / 2350 Balance 2350 / 2350 Weight 99 kg 100.1 kg Intake: IV 2350 / 2350 Azithromycin Inj 500 MG In NS 250 / 250 Inj 250 ML @ 500 mls/hr IV.SIG ONCE ONE Rx#:[id number] NS Inj 1,000 ML @ 2000 mls/hr 1999 / 1999 IV.SIG Q30M [facility] Rx#:[id number] Rocephin Inj 2,000 MG In NS Inj 100 / 100 100 ML @ 200 mls/hr IV.SIG ONCE ONE Rx#:[id number] Other: # Voids 4 # Incontinent Voids 2 # Bowel Movements 2 Narrative: GENERAL: This is a well-nourished, well-developed patient, in no apparent distress. SKIN: No rashes, ecchymoses or lesions. Warm and dry. HEAD: Atraumatic. Normocephalic. No temporal or scalp tenderness. EYES: Pupils equal round and reactive. No injection or drainage. ENT: Nose without bleeding, purulent drainage or septal hematoma. Airway patent. NECK: Trachea midline. No lymphadenopathy. Supple, nontender, no meningeal signs. CARDIOVASCULAR: Regular rate and rhythm without murmurs, gallops, or rubs. No JVD. RESPIRATORY: Moderate air entry. Diffuse rales appreciated. GASTROINTESTINAL: Abdomen soft, non-tender, nondistended. No guarding. MUSCULOSKELETAL: Extremities without clubbing, cyanosis, or edema. NEUROLOGICAL: Awake and alert. Cranial nerves II through XII intact. No focal neurological deficits. Normal speech. Results Procedures completed during hospitalization: None. Labs on day of discharge: Labs from last 24 hours 09/01/18 09/01/18 09/01/18 17:45 14:22 14:22 CBC w Diff Auto diff final WBC 7.8 RBC 4.23 L Hgb 13.0 Hct 38.8 L MCV 91.8 MCH 30.8 MCHC 33.5 RDW 15.2 Plt Count 163 MPV 9.0 Neut % (Auto) 82.6 H Lymph % (Auto) 5.4 L [place] % (Auto) 10.5 H Eos % (Auto) 1.2 Baso % (Auto) 0.3 Neut # (Auto) 6.5 Lymph # (Auto) 0.4 L [place] # (Auto) 0.8 Eos # (Auto) 0.1 Baso # (Auto) 0.0 WBC Differential . Differential Comment . Sodium 136 Potassium 4.0 Chloride 101 Carbon Dioxide 28.8 Anion Gap 6 BUN 14 Creatinine 0.98 Estimated GFR 72 L Random Glucose 181 H Lactic Acid Calcium 8.5 Magnesium 1.9 Total Bilirubin 0.9 AST 15 ALT 16 Alkaline Phosphatase 83 Total Protein 7.5 Albumin 3.2 L Urine Color Yellow Urine Clarity Clear Urine pH 6.0 Ur Specific [place] Less/equal 1.005 Urine Protein Negative Urine Glucose (UA) Negative Urine Ketones Negative Urine Occult Blood Negative Urine Nitrate Negative Urine Bilirubin Negative Urine Urobilinogen 0.2 Ur Leukocyte Esterase Negative Urine RBC 0-3 Urine WBC 0-5 Ur Squamous Epith Cells 0-5 Micro UA Comment Culture not ind Ur Microscopic Review Microscopic reviewed Urine Culture Comments Culture not ind 09/01/18 14:15 CBC w Diff WBC RBC Hgb Hct MCV MCH MCHC RDW Plt Count MPV Neut % (Auto) Lymph % (Auto) [place] % (Auto) Eos % (Auto) Baso % (Auto) Neut # (Auto) Lymph # (Auto) [place] # (Auto) Eos # (Auto) Baso # (Auto) WBC Differential Differential Comment Sodium Potassium Chloride Carbon Dioxide Anion Gap BUN Creatinine Estimated GFR Random Glucose Lactic Acid 1.3 Calcium Magnesium Total Bilirubin AST ALT Alkaline Phosphatase Total Protein Albumin Urine Color Urine Clarity Urine pH Ur Specific [place] Urine Protein Urine Glucose (UA) Urine Ketones Urine Occult Blood Urine Nitrate Urine Bilirubin Urine Urobilinogen Ur Leukocyte Esterase Urine RBC Urine WBC Ur Squamous Epith Cells Micro UA Comment Ur Microscopic Review Urine Culture Comments - Impressions ITS Impressions Chest X-Ray 09/01/18 14:01 CONCLUSION: 1. No evidence of acute cardiopulmonary disease. 2. Very mild chronic interstitial changes similar to before. 3. Tortuous and atherosclerotic aorta. Discharge Plan - Discharge Disposition Patient Disposition: 01 Discharge Home - Discharge Condition Condition: Good - Discharge Order Discharge Orders: Discharge Order (Routine); Ordered 09/02/18 Ordered By: Jessica Lundberg - Discharge Details Anticipated Discharge Date: 09/02/18 - Physicians Team Primary Care Provider: Elder Larkin I Attending Provider: Jessica Lundberg
== END 2018-09-02 12:30 | disposition home or self-care (01) ==
LOC: PHED 13:41 → PHEDA 13:41 → PH3 18:20
PROVIDERS: ADMIT Hospitalist; ATTEND Hospitalist